=== PATIENT | female | born 1980 | race Caucasian/White ===

== ENCOUNTER 2023-07-30 14:05 | Emergency (ER) | payer MEDICAID ==
[~2023-07-30] VITALS: Ht 151.6 cm; Wt 83.5 kg
[2023-07-30 14:16] VITALS: BP 124/67; PULSE 92; RESP 18; TEMP 98.9; O2SAT 99
[2023-07-30] MEDS ORDERED: LIDO15SO4 PO (15:25)
== END 2023-07-30 15:56 | disposition home or self-care (01) ==
LOC: MED 14:05
DX: K12.0 Recurrent oral aphthae (principal); Z79.899 Other long term (current) drug therapy
CPT/HCPCS: 36415; 87252; 99283

== ENCOUNTER 2023-11-07 10:36 | Emergency (ER) | payer MEDICAID, OTHER ==
[~2023-11-07] VITALS: Ht 147.3 cm; Wt 81.6 kg
[~2023-11-07 10:36] MED LIST: LIDO15SO4 PO
[2023-11-07 11:23] VITALS: BP 144/67; PULSE 81; RESP 15; TEMP 97.4; O2SAT 100
[2023-11-07] MEDS ORDERED: KETOROLAC 30 MG/ML VIAL IM ONE (14:50)
[2023-11-07] MEDS ORDERED: AMOX500C25 PO (14:51)
[2023-11-07] MEDS ORDERED: NAPR-1003 PO (14:51)
== END 2023-11-07 15:16 | disposition home or self-care (01) ==
LOC: MED 10:36
DX: K08.89 Other specified disorders of teeth and supporting structures (principal); M27.61 Osseointegration failure of dental implant; F20.9 Schizophrenia, unspecified; Z79.899 Other long term (current) drug therapy; Z79.2 Long term (current) use of antibiotics; Z79.1 Long term (current) use of non-steroidal anti-inflammatories (NSAID)
CPT/HCPCS: 96372; 99283; J1885

== ENCOUNTER 2023-12-19 10:55 | Emergency (ER) | payer OTHER ==
[~2023-12-19] VITALS: Ht 152.4 cm; Wt 83.5 kg
[~2023-12-19 10:55] MED LIST changes: +AMOX500C25 PO; +NAPR-1003 PO
[2023-12-19 11:54] VITALS: BP 121/55; PULSE 72; RESP 20; TEMP 97.3; O2SAT 96
[2023-12-19] MEDS: CARBAMIDE PEROXIDE 6.5% OT 15 ML BTL OT ONE (12:25)
[2023-12-19 13:59] VITALS: BP 120/62; PULSE 72; RESP 18; TEMP 97.8; O2SAT 99
== END 2023-12-19 14:05 | disposition home or self-care (01) ==
LOC: MED 10:55
DX: H61.23 Impacted cerumen, bilateral (principal); Z79.899 Other long term (current) drug therapy
CPT/HCPCS: 99282

== ENCOUNTER 2024-01-02 11:20 | Emergency (ER) | payer OTHER ==
[~2024-01-02] VITALS: Ht 152.4 cm; Wt 81.6 kg
[2024-01-02 11:50] VITALS: BP 116/88; PULSE 88; RESP 16; TEMP 97.5; O2SAT 99
[2024-01-02] MEDS ORDERED: CARB15DR61 OT (15:23)
[2024-01-02 15:31] VITALS: BP 117/90; PULSE 85; RESP 16; TEMP 97.6; O2SAT 99
== END 2024-01-02 15:31 | disposition home or self-care (01) ==
LOC: MED 11:20
DX: H61.23 Impacted cerumen, bilateral (principal); T16.2XXA Foreign body in left ear, initial encounter; T16.1XXA Foreign body in right ear, initial encounter; W44.8XXA Other foreign body entering into or through a natural orifice, initial encounter; Y93.89 Activity, other specified; Y92.89 Other specified places as the place of occurrence of the external cause; Y99.8 Other external cause status
CPT/HCPCS: 99282

== ENCOUNTER 2024-07-25 08:25 | Emergency (ER) | payer OTHER ==
[~2024-07-25] VITALS: Ht 149.9 cm; Wt 84.8 kg
[~2024-07-25 08:25] MED LIST changes: +CARB15DR61 OT; +LIDO15SO10 PO; -LIDO15SO4 PO
[2024-07-25 08:47] VITALS: BP 102/75; PULSE 72; RESP 18; TEMP 97.3; O2SAT 97
[2024-07-25 09:00] VITALS: O2SAT 97
[2024-07-25] MEDS: DEXAMETHASONE 10 MG/ML VIAL IM ONE (09:22)
[2024-07-25] MEDS: IBUPROFEN 600 MG TAB PO ONE (09:23)
[2024-07-25] MEDS ORDERED: CARB15DR61 OT (09:23)
[2024-07-25] MEDS ORDERED: IBUP-2213 PO (09:25)
[2024-07-25] MEDS ORDERED: BENZ1GEL13 MM (09:25)
== END 2024-07-25 09:50 | disposition home or self-care (01) ==
LOC: MED 08:25
DX: J02.9 Acute pharyngitis, unspecified (principal); K12.1 Other forms of stomatitis; H61.23 Impacted cerumen, bilateral; R03.0 Elevated blood-pressure reading, without diagnosis of hypertension; Z79.899 Other long term (current) drug therapy
CPT/HCPCS: 87081; 96372; 99283; J1100